=== PATIENT | female | born 1970 | race Caucasian/White ===

== ENCOUNTER → 2017-01-13 | Outpatient (CLI) | payer OTHER ==
[2017-01-13 08:00] LABS: BASO # 0.1 x10^3/uL (0.0-0.2); BASO % 1 % (0-3); EOS % 3 % (0-3); HEMATOCRIT 41.8 % (36.0-47.0); HEMOGLOBIN 14.5 g/dL (12.0-15.5); LYMPH % 23 % (24-48); MEAN CORPUSCULAR HEMOGLOBIN 33 pg (25-35); MEAN CORPUSCULAR HGB CONC 35 g/dL (31-37); MEAN CORPUSCULAR VOLUME 94 fL (79-100); MONO % 8 % (0-9); NEUT % 66 % (31-73); PLATELET COUNT 365 x10^3/uL (140-400); RED BLOOD COUNT 4.43 x10^6/uL (3.50-5.40); RED CELL DISTRIBUTION WIDTH 12.7 % (11.5-14.5)
[2017-01-13 08:14] LABS: BILIRUBIN,URINE NEGATIVE (NEG); GLUCOSE,URINE NEGATIVE (NEG); NITRITE,URINE NEGATIVE (NEG); PH,URINE 5.5; PROTEIN,URINE NEGATIVE (NEG-TRACE); UROBILINOGEN,URINE 0.2 mg/dL (0.2 mg/dL)
[2017-01-13 08:17] LABS: ALBUMIN 3.8 g/dL (3.4-5.0); CALCIUM 8.9 mg/dL (8.5-10.1); CHOLESTEROL/HDL RATIO 5.9; GFR 60.2; POTASSIUM 3.8 mmol/L (3.5-5.1); TOTAL BILIRUBIN 1.3 mg/dL (0.2-1.0); TOTAL PROTEIN 7.8 g/dL (6.4-8.2)
[2017-01-13 08:27] LABS: FREE T4 0.86 ng/dL (0.76-1.46)
[2017-01-13 08:33] LABS: BACTERIA,URINE 0 /HPF (0-FEW); RBC,URINE 0 /HPF (0-2); SQUAMOUS EPITHELIAL CELL,UR FEW /LPF; WBC,URINE 0 /HPF (0-4)
--- NOTE | 2017-01-13 08:57 | RAD ---
DATE: 01/13/2017. EXAM: DIGITAL SCREEN BILAT W/CAD. HISTORY: Routine mammographic screening. COMPARISON: 12/18/2014. This study was interpreted with the benefit of Computerized Aided Detection (CAD). FINDINGS: The breast parenchyma shows scattered fibroglandular densities. Breast parenchyma level B.. There are no suspicious masses, microcalcifications or architectural distortion. The parenchymal pattern is stable. BI-RADS CATEGORY: 1 NEGATIVE. RECOMMENDED FOLLOW-UP: 12M 12 MONTH FOLLOW-UP. PQRS compliance statement: Patient information was entered into a reminder system with a target due date 01/13/2018 for the next mammogram. Mammography is a sensitive method for finding small breast cancers, but it does not detect them all and is not a substitute for careful clinical examination. A negative mammogram does not negate a clinically suspicious finding and should not result in delay in biopsying a clinically suspicious abnormality. "Our facility is accredited by the [employer] Mammography [employer]."
== END | disposition home or self-care (01) ==
LOC: MAMMO 07:31
DX: Z12.31 Encounter for screening mammogram for malignant neoplasm of breast (principal); Z00.00 Encounter for general adult medical examination without abnormal findings
CPT/HCPCS: 36415; 80053; 80061; 81001; 84439; 84443; 85025; 85651; G0202; 77067

== ENCOUNTER → 2017-06-29 | Outpatient (CLI) | payer OTHER | END | disposition home or self-care (01) | LOC: CT 09:30 | DX: J31.0 Chronic rhinitis (principal); J34.2 Deviated nasal septum; J34.1 Cyst and mucocele of nose and nasal sinus; G47.00 Insomnia, unspecified | CPT/HCPCS: 70486 ==

== ENCOUNTER → 2017-06-29 | Outpatient (CLI) | payer OTHER | END | disposition home or self-care (01) | LOC: RT 08:57 | DX: J31.0 Chronic rhinitis (principal); G47.00 Insomnia, unspecified; J34.2 Deviated nasal septum; G47.30 Sleep apnea, unspecified | CPT/HCPCS: G0399 ==

== ENCOUNTER 2017-08-30 11:53 | Day surgery (SDC) | payer OTHER ==
[~2017-08-30 11:53] MED LIST: LIDOCAINE 1% PF 2 ML VIAL. ID; MORPHINE SULFATE 4 MG/ML DISP.SYRIN. IV; ONDANSETRON PF 4 MG/2 ML VIAL. IV; fentaNYL PF VIAL 100 MCG/2 ML VIAL IV
[2017-08-30 12:15] LABS: NEG OBC UR NEG; POS OBC UR POS; U PREG PATIENT NEGATIVE (NEG)
[2017-08-30] MEDS ORDERED: TRIAMCINOLONE ACETONIDE 40 MG/ML VIAL. ID (12:30)
[2017-08-30] MEDS: IV RINGERS,LACTATED 1000ML 1,000 ML IV (12:37)
[2017-08-30] MEDS ORDERED: MIDAZOLAM HCL/PF 2 MG/2 ML VIAL. (13:08)
[2017-08-30] MEDS ORDERED: fentaNYL PF VIAL 100 MCG/2 ML VIAL (13:12)
[2017-08-30] MEDS ORDERED: PROPOFOL 20 ML IV (13:12)
[2017-08-30] MEDS ORDERED: ONDANSETRON PF 4 MG/2 ML VIAL. (13:12)
[2017-08-30] MEDS ORDERED: DEXAMETHASONE SOD PHOS 20 MG/5 ML VIAL. (13:12)
[2017-08-30] MEDS ORDERED: FAMOTIDINE 20 MG/2 ML VIAL (13:12)
[2017-08-30] MEDS ORDERED: LIDOCAINE 2% PF Vial for OR 5 ML VIAL. (13:12)
[2017-08-30] MEDS ORDERED: OXYMETAZOLINE 0.05% NASAL SPRAY 30ML BOTTLE. NS (13:21)
[2017-08-30] MEDS ORDERED: REMIFENTANIL 2 MG VIAL. IV (13:47)
[2017-08-30] MEDS: COCAINE 4% TOPICAL SOLUTION TP (14:26)
[2017-08-30] MEDS: LIDOCAINE 1%/EPI 1:100,000 20 ML VIAL. INJ (14:26)
[2017-08-30] MEDS: BUPIVACAINE-EPI 0.25%-1:200000 50 ML VIAL. (14:44)
[2017-08-30] MEDS ORDERED: DESFLURANE 31 TO 60 MINUTES IH (15:03)
[2017-08-30] MEDS: PROCHLORPERAZINE 10 MG/2 ML VIAL. IV (15:25)
[2017-08-30] MEDS: fentaNYL PF VIAL 100 MCG/2 ML VIAL IV ×2 (15:31→15:43)
[2017-08-30] MEDS ORDERED: oxyCODONE/APAP 7.5/325 1 TAB TABLET (16:30)
[2017-08-30] MEDS: oxyCODONE/APAP 7.5/325 1 TAB TABLET PO (16:47)
== END 2017-08-30 17:32 | disposition home or self-care (01) ==
LOC: SURG 11:53
DX: J32.8 Other chronic sinusitis (principal); J34.3 Hypertrophy of nasal turbinates; J35.03 Chronic tonsillitis and adenoiditis; E78.00 Pure hypercholesterolemia, unspecified; G47.30 Sleep apnea, unspecified; K21.9 Gastro-esophageal reflux disease without esophagitis; E66.9 Obesity, unspecified; Z98.51 Tubal ligation status; F41.9 Anxiety disorder, unspecified; Z98.890 Other specified postprocedural states
CPT/HCPCS: 30140; 81025; 88304; 88305; 88311; A7015; J0780; J1100; J2250; J2405; J2704; J3010; J3301; J3490; S0028

== ENCOUNTER → 2018-03-28 | Outpatient (CLI) | payer OTHER ==
[2017-08-30 17:15] VITALS: BP 135/64
[~2018-03-28] MED LIST changes: +AMOX400S2 PO; +ATOR20TA58 PO; +ESCITALOPRAM OX20 MG PO; +GABA300C18 PO; +IBUP-1060 PO; -LIDOCAINE 1% PF 2 ML VIAL. ID; +LORA10TA68 PO; -MORPHINE SULFATE 4 MG/ML DISP.SYRIN. IV; +MULT1TAB52 PO; +ONDA8TAB12 PO; -ONDANSETRON PF 4 MG/2 ML VIAL. IV; +OXYC1TAB19 PO; +TIZA4TAB PO; -fentaNYL PF VIAL 100 MCG/2 ML VIAL IV
--- NOTE | 2018-04-01 13:05 | RAD ---
DATE: 03/28/2018 4:15 PM EXAM: MAMMO ELIJAH SCREENING BILATERAL HISTORY: routine screening evaluation COMPARISON: Prior mammographic imaging dating back to 12/18/2014 Bilateral CC and MLO views of the breasts were performed. Bilateral breast tomosynthesis was performed in CC and MLO projections. This study was interpreted with the benefit of Computerized Aided Detection (CAD ). Breast Density: The breast parenchyma shows scattered fibroglandular densities. Breast parenchyma level B. FINDINGS: Benign calcifications are present. The parenchymal pattern appears stable. No suspicious masses, microcalcifications or architectural distortion is present to suggest malignancy in either breast. The visualized axillae are unremarkable. IMPRESSION: No mammographic evidence of malignancy. BI-RADS CATEGORY: 2 BENIGN FINDING(S) RECOMMENDED FOLLOW-UP: 12M 12 MONTH FOLLOW-UP Annual screening mammography is recommended, unless clinically indicated sooner based on symptoms or change in physical exam. PQRS compliance statement: Patient information was entered into a reminder system with a target due date 03/28/2019 for the next mammogram. Mammography is a sensitive method for finding small breast cancers, but it does not detect them all and is not a substitute for careful clinical examination. A negative mammogram does not negate a clinically suspicious finding and should not result in delay in biopsying a clinically suspicious abnormality. "Our facility is accredited by the [employer] Mammography [employer]." [email or web address]
== END | disposition home or self-care (01) ==
LOC: MAMMO 12:48
PROVIDERS: ATTEND Physician Assistant Medical
DX: Z12.31 Encounter for screening mammogram for malignant neoplasm of breast (principal)
CPT/HCPCS: 77063; 77067

== ENCOUNTER → 2020-03-06 | Outpatient (CLI) | payer OTHER ==
[2017-08-30 17:15] VITALS: BP 135/64
[~2020-03-06] MED LIST changes: +MULT-445 PO; -MULT1TAB52 PO; -TIZA4TAB PO; +TIZA4TAB2 PO
== END ==
LOC: LAB 09:08
PROVIDERS: ATTEND Internal Medicine Pulmonary Disease
DX: R05 Cough (principal); R11.2 Nausea with vomiting, unspecified; R19.7 Diarrhea, unspecified; R09.81 Nasal congestion; R51.9 Headache, unspecified; J02.9 Acute pharyngitis, unspecified; R68.89 Other general symptoms and signs; Z20.828 Contact with and (suspected) exposure to other viral communicable diseases
CPT/HCPCS: U0003

== ENCOUNTER → 2020-08-13 | Outpatient (CLI) | payer OTHER ==
[2017-08-30 17:15] VITALS: BP 135/64
--- NOTE | 2020-08-13 16:38 | RAD ---
EXAM: Bilateral digital screening mammogram with tomosynthesis. HISTORY: 49-year-old female presents for screening mammography. TECHNIQUE: Full-field digital craniocaudal and mediolateral oblique 2D and 3D tomosynthesis images of both breasts are obtained for evaluation. Computer aided detection was applied. COMPARISON: 03/28/2018 BREAST PARENCHYMAL DENSITY: Level A - Mostly fat. FINDINGS: There is no new suspicious mass, microcalcification or region of architectural distortion. IMPRESSION: BI-RADS Category 2: Benign finding(s). RECOMMENDATION: Annual mammography is recommended. If your mammogram demonstrates that you have dense breast tissue, which could hide abnormalities, and if you have other risk factors for breast cancer that have been identified, you might benefit from s upplemental screening tests that may be suggested by your ordering physician. Dense breast tissue, i n and of itself, is a relatively common condition. This information is not provided to cause undue c oncern, but rather to raise your awareness and to promote discussion with your physician regarding th e presence of other risk factors, in addition to dense breast tissue. A report of your mammography re sults will be sent to you and your physician. You should contact your physician if you have any ques tions or concerns regarding this report. Mammography is a sensitive method for finding small breast cancers, but it does not detect them all a nd is not a substitute for careful clinical examination. A negative mammogram does not negate a clin ically suspicious finding and should not result in delay in biopsying a clinically suspicious abnorma lity. PQRS compliance statement - Patient information was entered into a reminder system with a target due date for the next mammogram. "Our facility is accredited by the [employer] Mammography [employer]." Electronically signed by: Claudine Hernandez MD (08/13/2020 4:36 PM) [id number]
== END ==
LOC: MAMMO 15:18
PROVIDERS: ATTEND Physician Assistant Medical
DX: Z12.31 Encounter for screening mammogram for malignant neoplasm of breast (principal)
CPT/HCPCS: 77063; 77067

== ENCOUNTER → 2020-10-25 | Outpatient (CLI) | payer OTHER ==
[2017-08-30 17:15] VITALS: BP 135/64
--- NOTE | 2020-10-25 09:11 | RAD ---
EXAM: ULTRASOUND PELVIS INDICATION: Cannot find IUD string. COMPARISON: None available. TECHNIQUE: Transabdominal and transvaginal sonography was performed. FINDINGS: Transabdominal sonography: The uterus is anteverted in position. The endometrial canal is poorly visu alized. Neither ovary is visualized. Therefore, transvaginal sonography will be performed. No adnexal mass or free fluid is apparent. Transvaginal sonography: The endometrium measures 20 mm in thickness and is echogenic. An IUD is seen within the endometrial canal. The right ovary measures 3.4 cm x 2.2 cm x 1.8 cm in size and contains a simple 16 mm follicular cyst . Color Doppler flow is seen within the right ovary. The left ovary measures 2.9 cm x 3.8 cm x 3.0 cm in size and contains a 3.1 cm simple follicular cyst. Color Doppler flow is seen within the ovarian parenchyma of the left ovary around the cyst. There is a lower uterine body mass measuring 2.8 cm x 2 .4 cm x 2.7 cm in size which may represent a lower uterine body fibroid. IMPRESSION: IUD located in the endometrial canal of the uterus. There is abnormal thickening of the fundal portion of the endometrial canal measuring 20 mm in thickn ess. Recommend a follow-up transvaginal sonogram in 3-4 months after completion of menstruation. Lower uterine body fibroid measuring 2.8 cm in size. Bilateral follicular ovarian cysts. Electronically signed by: Vijay Orellana MD (10/25/2020 9:08 AM) [id number]
== END ==
LOC: US 07:04
PROVIDERS: ATTEND Obstetrics & Gynecology
DX: T83.32XA Displacement of intrauterine contraceptive device, initial encounter (principal); N83.02 Follicular cyst of left ovary; N83.01 Follicular cyst of right ovary; X58.XXXA Exposure to other specified factors, initial encounter
CPT/HCPCS: 76830; 76856

== ENCOUNTER → 2020-11-15 | Outpatient (CLI) | payer OTHER ==
[2017-08-30 17:15] VITALS: BP 135/64
== END ==
LOC: LAB 10:57
PROVIDERS: ATTEND Internal Medicine Pulmonary Disease
DX: Z20.822 Contact with and (suspected) exposure to COVID-19 (principal)
CPT/HCPCS: U0003; U0005

== ENCOUNTER → 2020-11-21 | Outpatient (CLI) | payer OTHER ==
[2017-08-30 17:15] VITALS: BP 135/64
== END ==
LOC: LAB 07:58
PROVIDERS: ATTEND Internal Medicine Pulmonary Disease
DX: Z20.822 Contact with and (suspected) exposure to COVID-19 (principal)
CPT/HCPCS: U0003; U0005

== ENCOUNTER → 2021-03-07 | Outpatient (CLI) | payer OTHER ==
[2017-08-30 17:15] VITALS: BP 135/64
[~2021-03-07] MED LIST changes: +TIZA-75 PO; -TIZA4TAB2 PO
--- NOTE | 2021-03-07 12:43 | RAD ---
EXAMINATION: US PELVIS W/TV, 03/07/2021 7:03 AM CLINICAL INDICATION: Fibroid TECHNIQUE: Grayscale, color and spectral Doppler ultrasound images of the pelvis via transabdominal a nd transvaginal approach. COMPARISON: Pelvic ultrasound 10/25/2020. FINDINGS: The uterus measures 9.5 x 6.0 x 5.8 cm. The endometrial stripe measures 11 mm in thickness. Unchanged myometrial mass in the anterior fundus measuring 2.9 x 2.9 x 2.6 cm. There is a nabothian cysts in t he cervix. The right ovary measures 3.0 x 1.6 x 1.8 cm. The left ovary measures 2.4 x 1.9 x 1.7 cm. N ormal ovarian blood flow bilaterally. No adnexal mass or free fluid. IMPRESSION: Unchanged 2.9 cm fibroid in the uterus. Electronically signed by: Tita De Leon MD (03/07/2021 12:41 PM) [id number]
== END ==
LOC: US 07:02
PROVIDERS: ATTEND Nurse Practitioner Women's Health
DX: N88.8 Other specified noninflammatory disorders of cervix uteri (principal); D25.9 Leiomyoma of uterus, unspecified
CPT/HCPCS: 76830; 76856